=== PATIENT | female | born 1970 | race Caucasian/White ===

== ENCOUNTER → 2019-04-08 | Outpatient (CLI) | payer BC, OTHER ==
--- NOTE | 2019-04-13 09:59 | SLEEPCENT ---
DATE OF STUDY: 04/08/2019 ORDERED BY: Onelia Lisa Nocturnal polysomnography was performed for evaluation of sleep physiology in this patient with a history of excessive somnolence and nonrestorative sleep who has comorbidities of hypertension, acid reflux, and atrial fibrillation. 7 hours and 55 minutes of data were reviewed. There were 348 minutes of sleep identified. Sleep latency was prolonged 52.5 minutes. Rapid eye movement (REM) latency was prolonged at 200.5 minutes. Sleep architecture showed fragmentation early in the study. There two REM cycles noted. Overall sleep efficiency 74.6%. The electrocardiogram showed a sinus rhythm with an average heart rate of 60 beats per minute. Occasional premature ventricular contractions (PVCs) were noted. electroencephalogram (EEG) showed normal waveforms for awake and sleep. There were 101 respiratory events identified of 10 seconds in duration or greater for an apnea-hypopnea index of 17.4. The events were obstructive, not exclusive to sleep stage nor body posture. Arousals occurred 14.8 times per hour, and oxygen desaturations were seen into the mid 80s. There was some limb activity appreciated. Limb movement arousals were few. IMPRESSION: Obstructive sleep apnea syndrome (G47.33), apnea-hypopnea index 17.4. RECOMMENDATIONS: The patient should be encouraged to return to the sleep disorder center for pressure therapy. In the interim, alcohol and sedative avoidance should be practiced and caution exercised during the operation of motor vehicles.
== END ==
LOC: M SLEEP 19:39
PROVIDERS: ATTEND Nurse Practitioner Family
DX: R40.0 Somnolence (principal)

== ENCOUNTER → 2019-05-13 | Outpatient (CLI) | payer BC, OTHER ==
--- NOTE | 2019-05-19 09:52 | SLEEPCENT ---
DATE OF STUDY: 05/13/2019 ORDERED BY: Onelia Lisa Nocturnal polysomnography was performed for the titration of pressure therapy in this patient with obstructive sleep apnea syndrome, apnea-hypopnea index 17.4. For testing, the patient was fit with a [employer] full-face mask of small size, 4 cm of water pressure were applied to the circuit, and the lights were extinguished. 7 hours and 57 minutes of data were reviewed. There were 318.5 minutes of sleep identified. Sleep latency was prolonged at 107 minutes. Rapid eye movement (REM) sleep was prolonged at 151 minutes. Sleep architecture improved over the course of study with optimal pressure therapy, and there were two REM cycles. Overall sleep efficiency 67.9%. The electrocardiogram showed sinus rhythm with an average heart rate of 56 beats per minute. EEG showed normal waveforms for awake and sleep. Respiratory events were best palliated with continuous positive airway pressure (CPAP) at a pressure +15. IMPRESSION: Obstructive sleep apnea syndrome (G47.33). RECOMMENDATION: Nightly use of pressure therapy 15 cm of water.
== END ==
LOC: M SLEEP 19:56
PROVIDERS: ATTEND Nurse Practitioner Family
DX: G47.33 Obstructive sleep apnea (adult) (pediatric) (principal)

== ENCOUNTER → 2022-09-16 | Outpatient (REF) | LOC: M PLAIMG 10:14 | PROVIDERS: ATTEND Internal Medicine | DX: R52 Pain, unspecified (principal) ==